=== PATIENT | female | born 2000 | race Caucasian/White ===

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

== ENCOUNTER → 2018-09-24 | Emergency (ER) | payer BC, OTHER ==
[~2018-09-24] VITALS: Ht 167.6 cm; Wt 65.8 kg
[~2018-09-24] MED LIST changes: +Pepcid40 MG PO; +Prednisone50 MG PO; +Tamiflu75 MG PO
[2018-09-24 20:44] LABS: Influenza A Positive (NEGATIVE); Influenza B Negative (NEGATIVE)
== END ==
LOC: ER 19:50
PROVIDERS: Physician Assistant
DX: J10.1 Influenza due to other identified influenza virus with other respiratory manifestations (principal); H02.846 Edema of left eye, unspecified eyelid; H02.843 Edema of right eye, unspecified eyelid; J45.909 Unspecified asthma, uncomplicated; Z88.8 Allergy status to other drugs, medicaments and biological substances; Z79.899 Other long term (current) drug therapy; Z79.52 Long term (current) use of systemic steroids
CPT/HCPCS: 87804; 94640

== ENCOUNTER 2018-09-29 15:58 | Emergency (ER) | payer BC, OTHER ==
[~2018-09-29] VITALS: Ht 167.6 cm; Wt 65.8 kg
[2018-09-29] MEDS ORDERED: ALBU90OI INH ×2 (16:09→16:59)
[2018-09-29] MEDS ORDERED: Albuterol S5 MG/1 ML INH (16:59)
[2018-09-29] MEDS ORDERED: METPRE4DP PO (16:59)
== END 2018-09-29 17:09 | disposition home or self-care (01) ==
LOC: ER 15:58
DX: J10.1 Influenza due to other identified influenza virus with other respiratory manifestations (principal); J45.901 Unspecified asthma with (acute) exacerbation; Z88.8 Allergy status to other drugs, medicaments and biological substances
CPT/HCPCS: 71046; 94640; 99283-25

== ENCOUNTER 2019-01-03 20:54 | Emergency (ER) | payer BC, OTHER ==
[~2019-01-03] VITALS: Ht 167.6 cm; Wt 68.0 kg
[~2019-01-03 20:54] MED LIST changes: +Albuterol S5 MG/1 ML INH; +METPRE4DP PO
[2019-01-03] MEDS ORDERED: Prednisone20 MG PO (22:39)
== END 2019-01-03 22:59 | disposition home or self-care (01) ==
LOC: ER 20:54
DX: J45.901 Unspecified asthma with (acute) exacerbation (principal); L50.9 Urticaria, unspecified; Z88.8 Allergy status to other drugs, medicaments and biological substances
CPT/HCPCS: 71046; 94640; 99283-25; J1100; Q0163

== ENCOUNTER 2020-01-16 15:27 | Emergency (ER) | payer OTHER ==
[~2020-01-16] VITALS: Ht 167.6 cm; Wt 65.8 kg
[~2020-01-16 15:27] MED LIST changes: +Prednisone20 MG PO
[2020-01-16] MEDS ORDERED: BIRTH CONTROL (15:38)
[2020-01-16 15:55] LABS: Source, Urine Clean Catch
[2020-01-16 15:57] LABS: BASOPHILS ABSOLUTE AUTO 0.02 K/mm3 (0.00-0.23); BASOPHILS PERCENT AUTO 0 % (0-2); EOSINOPHILS PERCENT AUTO 1 % (0-6); Hematocrit 45.2 % (33.0-51.0); Hemoglobin 14.5 g/dL (11.5-16.0); IMMATURE GRAN ABSOLUTE AUTO 0.03 K/mm3 (0.00-0.10); IMMATURE GRAN PERCENT AUTO 0 % (0-1); LYMPHOCYTES ABSOLUTE AUTO 3.27 K/mm3 (0.84-5.20); LYMPHOCYTES PERCENT AUTO 26 % (21-46); MONOCYTES ABSOLUTE AUTO 0.64 K/mm3 (0.16-1.47); MONOCYTES PERCENT AUTO 5 % (4-13); Mean Corpuscular HGB 27.6 pg (26.0-34.0); Mean Corpuscular HGB Conc 32.1 g/dL (31.5-36.5); Mean Corpuscular Volume 86 fL (80-100); Mean Platelet Volume 10.2 fL (9.1-12.4); NEUTROPHILS ABSOLUTE AUTO 8.69 K/mm3 (1.96-9.15); NEUTROPHILS PERCENT AUTO 68 % (41-73); Platelet Count 318 K/mm3 (150-400); RDW Coefficient Variation 12.6 % (11.7-14.2); RDW Standard Deviation 39.6 fL (35.1-46.3); Red Blood Cell Count 5.26 M/mm3 (3.80-5.20); White Blood Cell Count 12.75 K/mm3 (4.00-11.30)
[2020-01-16 15:57] LABS: Bilirubin, Urine Neg (Neg); Blood, Urine Neg (Neg); Glucose Qualitative, Urine Neg (Neg); Ketones, Urine Neg (Neg); Leukocyte Esterase, Urine 1+ (Neg); Nitrite, Urine Neg (Neg); Protein, Urine Neg (Neg); Specific Gravity, Urine 1.025 (1.003-1.022); Urobilinogen, Urine NORM (Normal)
[2020-01-16 15:59] LABS: Appearance, Urine Clear (Clear); Color, Urine Yellow (P-Yellow)
[2020-01-16 16:04] LABS: Bacteria Mod /hpf; Red Blood Cells, Urine 0-2 /hpf (0-2); Squamous Epithelial Cells Few /hpf (Few)
[2020-01-16 16:17] LABS: Alanine Aminotransfer (ALT/SGP 14 U/L (12-78); Albumin, Blood 3.9 g/dL (3.4-5.0); Alk Phos 94 U/L (50-136); Anion Gap 8 mmol/L (6-16); Aspartate Aminotrans (AST/SGOT 14 U/L (12-37); Bilirubin, Total 0.3 mg/dL (0.1-1.0); Blood Urea Nitrogen 12 mg/dL (8-24); Bun/Creatinine Ratio 17.2 (12.0-20.0); CO2, Blood 24 mmol/L (21-32); Calcium, Blood 8.9 mg/dL (8.5-10.1); Chloride, Blood 106 mmol/L (98-108); Globulin, Blood 4.1 g/dL (2.2-4.0); Glomerular Filtration Rate >60 (60-); Glucose, Blood 89 mg/dL (70-99); Potassium, Blood 3.7 mmol/L (3.5-5.5); Sodium, Blood 138 mmol/L (136-145)
== END 2020-01-16 20:20 | disposition home or self-care (01) ==
LOC: ER 15:27
PROVIDERS: Physician Assistant
DX: K92.2 Gastrointestinal hemorrhage, unspecified (principal); R19.7 Diarrhea, unspecified; J45.909 Unspecified asthma, uncomplicated; Z88.8 Allergy status to other drugs, medicaments and biological substances
CPT/HCPCS: 36415; 80053; 81001; 83690; 85025; 87086; 99283

== ENCOUNTER 2020-03-20 08:47 | Day surgery (SDC) | payer OTHER ==
[~2020-03-20] VITALS: Ht 167.6 cm; Wt 68.8 kg
[~2020-03-20 08:47] MED LIST changes: +BIRTH CONTROL
--- NOTE | 2020-03-20 10:15 | NUR ---
03/20/20 1015 [facility] [address] ROOM DELAYED DUE TO FIRST CASE RUNNING LONG. PATIENT AND MOTHER ADVISED. BOTH EXPRESS UNDERSTANDING AND NO NEEDS AT THIS TIME
== END 2020-03-20 11:25 | disposition home or self-care (01) ==
LOC: ORSCSDS 08:47
PROVIDERS: Student in an Organized Health Care Education/Training Program
PROC: 0DBG8ZX Excision of Left Large Intestine, Via Natural or Artificial Opening Endoscopic, Diagnostic (ICD-10-PCS; principal; 2020-03-20 10:15)
PROC: 0DBF8ZX Excision of Right Large Intestine, Via Natural or Artificial Opening Endoscopic, Diagnostic (ICD-10-PCS; principal; 2020-03-20 10:15)
DX: K92.1 Melena (principal); R19.7 Diarrhea, unspecified; K64.8 Other hemorrhoids; J45.909 Unspecified asthma, uncomplicated
CPT/HCPCS: 88305; J2704; J7120

== ENCOUNTER 2021-04-21 02:08 | Emergency (ER) | payer OTHER ==
[~2021-04-21] VITALS: Ht 167.6 cm; Wt 74.8 kg
[2021-04-21] MEDS ORDERED: Norco 5-325 Ta1 EACH PO (02:33)
[2021-04-21] MEDS ORDERED: EPIPEN0.3 MG/0.1 IJ (03:20)
[2021-04-21] MEDS ORDERED: FAMO20 PO (03:20)
== END 2021-04-21 03:46 | disposition home or self-care (01) ==
LOC: ER 02:08
DX: T78.40XA Allergy, unspecified, initial encounter (principal); J45.909 Unspecified asthma, uncomplicated; Z88.8 Allergy status to other drugs, medicaments and biological substances; Z79.899 Other long term (current) drug therapy
CPT/HCPCS: 99283; A9270

== ENCOUNTER 2023-01-06 22:21 | Emergency (ER) | payer OTHER ==
[~2023-01-06] VITALS: Ht 167.6 cm; Wt 77.1 kg
[~2023-01-06 22:21] MED LIST changes: +EPIPEN0.3 MG/0.1 IJ; +FAMO20 PO; +Norco 5-325 Ta1 EACH PO
[2023-01-07] MEDS ORDERED: EPIPEN0.3 MG/0.1 IM (01:23)
[2023-01-07 01:30] VITALS: BP 110/65
== END 2023-01-07 01:37 | disposition home or self-care (01) ==
LOC: ER 22:21
DX: T78.40XA Allergy, unspecified, initial encounter (principal); T78.3XXA Angioneurotic edema, initial encounter; J45.909 Unspecified asthma, uncomplicated; Z88.8 Allergy status to other drugs, medicaments and biological substances
CPT/HCPCS: J1200; J2930

== ENCOUNTER → 2024-03-25 | Outpatient (CLI) | payer OTHER ==
[~2024-03-25] MED LIST changes: +EPIPEN0.3 MG/0.1 IM
[2024-04-04 07:44] LABS: HPV HIGH RISK BY TMA Not Detected; HPV SOURCE Vaginal
== END ==
LOC: LAB 15:45 → LAB SHORT 15:45
PROVIDERS: Registered Nurse
DX: Z01.419 Encounter for gynecological examination (general) (routine) without abnormal findings (principal)
CPT/HCPCS: 87624; G0123